=== PATIENT | male | born 1980 | race Two or more races ===

== ENCOUNTER 2018-11-09 00:08 | Emergency (ER) | payer OTHER ==
[~2018-11-09] VITALS: Ht 172.7 cm; Wt 81.6 kg
[2018-11-09 00:16] VITALS: BP 144/94
[2018-11-09] MEDS ORDERED: GUAIFENESIN/CODEINE 10 ML UDC PO PRN (01:00)
[2018-11-09] MEDS ORDERED: IBUPROFEN 600 MG TABLET PO ONE ×2 (01:00→01:06)
[2018-11-09] MEDS ORDERED: GUAIFENESIN/CODEINE 10 ML UDC ONE (01:19)
== END 2018-11-09 02:06 | disposition home or self-care (01) ==
LOC: ER 00:10
DX: J02.8 Acute pharyngitis due to other specified organisms (principal); B97.89 Other viral agents as the cause of diseases classified elsewhere
CPT/HCPCS: 87400